=== PATIENT | female | born 1990 | race Caucasian/White ===

== ENCOUNTER 2017-01-28 15:57 | Outpatient (CLI) | payer OTHER ==
[~2017-01-28] VITALS: Ht 160 cm; Wt 77.3 kg
[2017-01-28] VITALS (8 sets, daily range): BP systolic 114–121; BP diastolic 67–79; PULSE 67–87; RESP 16–18; TEMP 97.5–97.8; O2SAT 97–100; Ht 160 cm; Wt 77.3 kg
[~2017-01-28 15:57] MED LIST: ADAL40PE SQ; AMOX-351 PO; FERR325T40 PO; HYDR-4246 PO; IBUP200C2 PO; MESA1.2T PO; METR500T PO; MULT1TAB69 PO; ONDA4TAB7 PO
[2017-01-28] MEDS ORDERED: NORMAL SALINE 1,000 ML IV SCH (16:30)
[2017-01-28] MEDS ORDERED: IRON DEXTRAN 100mg/2ml INJECTION IV ONE (16:30)
[2017-01-28] MEDS ORDERED: IRON DEXTRAN IV ONE (17:30)
[2017-01-28] MEDS ORDERED: NORMAL SALINE IV ONE (17:30)
[2017-01-28] MEDS ORDERED: NS 500 ML IV PRN (21:15)
== END 2017-01-28 21:35 | disposition home or self-care (01) ==
LOC: INF.THER 15:57
PROVIDERS: ATTEND Family Medicine
DX: D50.9 Iron deficiency anemia, unspecified (principal); K51.90 Ulcerative colitis, unspecified, without complications
CPT/HCPCS: 96365; 96366; 96375; J1750; J7030